=== PATIENT | male | born 1970 | race Caucasian/White ===

== ENCOUNTER 2016-07-13 04:04 | Inpatient (IN) | payer BC, OTHER ==
[~2016-07-13] VITALS: Ht 172.7 cm; Wt 102.5 kg
--- NOTE | 2016-07-13 04:21 | EMERGENCY ROOM VISIT NOTE ---
History Report prepared by Uzair: Justin Nichols Under the Supervision of: Dr. Brandan Woods M.D. First contact with patient: 04:06 Chief Complaint: ABDOMINAL PAIN Stated Complaint: ABD PAIN History of Present Illness The patient is a 46 year old male who presents to the Emergency Room from [place] with complaints of lower abdominal pain that started yesterday. The patient was diagnosed with moderate to severe sigmoid diverticulitis and micro perforation with possible 7 mm micro abscess. He received Levaquin, Flagyl, Zofran, and Dilaudid prior to arrival. His white count was 8.7 and his BNP and LFTs were in normal range. He has a past surgical history of hernia repair from when he was 14 years old. The patient complains of nausea, diarrhea, and constant pain that all started yesterday morning. He also notes difficulty urinating. Source of History: patient Onset: yesterday Position: abdomen Timing: other (persistent) Associated Symptoms: + diarrhea, + nausea Review of Systems See HPI for pertinent positives & negatives. A total of 10 systems reviewed and were otherwise negative. Past Medical & Surgical Medical Problems: (1) Acute diverticulitis (2) acute diverticulitis (3) Herniated cervical disc Surgical Problems: (1) Inguinal hernia Family History Diabetes mellitus FH: Parkinson's disease Heart disease Social History Smoking Status: Never Smoker Marital Status: Housing Status: lives with family Occupation Status: employed Current/Historical Medications Scheduled Cholecalciferol (Vitamin D 1000 Unit), 1,000 INTER.UNIT PO DAILY Allergies Coded Allergies: Sumatriptan (Verified Adverse Reaction, Unknown, hypotension, 07/13/16) Physical Exam Vital Signs Date Time Temp Pulse Resp B/P Pulse Ox O2 Delivery O2 Flow Rate FiO2 07/13/16 05:21 83 18 121/75 96 Room Air 07/13/16 04:32 88 18 123/72 90 Room Air 07/13/16 04:03 36.9 89 18 126/62 96 Room Air Physical Exam GENERAL: Patient is mild distress, uncomfortable appearing. HEENT: No acute trauma, normocephalic atraumatic, mucous membranes moist, no nasal congestion, no scleral icterus. NECK: No stridor, no adenopathy, no meningismus, trachea is midline. LUNGS: No dyspnea. Clear to auscultation and equal bilaterally. No wheeze, no rhonchi. HEART: Regular rate and rhythm. No murmurs, rubs, gallops appreciated. ABDOMEN: Soft, tenderness to palpation of suprapubic region, no guarding or rebound, bowel sounds positive, no masses appreciated, no peritonitis. BACK: No midline tenderness, no CVA tenderness EXTREMITIES: Normal motion all extremities, no cyanosis, no edema. NEUROLOGIC: Alert and oriented, no acute motor or sensory deficits, no focal weakness, cranial nerves grossly intact. SKIN: No rash, no jaundice, no diaphoresis. Medical Decision & Procedures Laboratory Results Test 07/13/16 05:09 Laboratory results as reviewed by me. Medications Administered Medications (Trade) Dose Ordered Sig/Karen Route Start Time Stop Time Status Last Admin Dose Admin Hydromorphone HCl (Dilaudid Inj) 1 mg NOW STAT IV 07/13/16 05:13 07/13/16 05:14 DC 07/13/16 05:17 1 MG ED Course 0402: The patient was evaluated in room A2. A complete history and physical exam was performed. 0513: Ordered Dilaudid Inj 1 mg IV. 0537: At this time, I discussed the patient's case with Dr. Ebenezer Hale and she agreed to accept the patient for further evaluation. Medical Decision 46 yr old male with already diagnosed sigmoid diverticulitis with microperforation at OSH transferred here to be evaluated by gen surgery. He has normal labs and looks well. Given some dilaudid for discomfort after a while in ED. Already had Levaquin/Flagyl for abx treatment. Breathing comfortably, no chest pain and looks well. Gen surg down to evaluate and request admission to hospitalist service. He is not septic appearing and is stable throughout ED stay. Consults Time Called: 0532 Consulting Physician: Dr. Ebenezer Hale Returned Call: 0537 At this time, I discussed the patient's case with Dr. Ebenezer Hale and she agreed to accept the patient for further evaluation. Impression Primary Impression: Diverticulitis of colon with perforation Scribe Attestation The scribe's documentation has been prepared under my direction and personally reviewed by me in its entirety. I confirm that the note above accurately reflects all work, treatment, procedures, and medical decision making performed by me. Departure Information Dispostion Being Evaluated By Hospitalist Referrals Patel Villarreal M.D. (PCP)
--- NOTE | 2016-07-13 05:12 | History and Physical ---
History & Physical Date & Time of Service: Jul 13, 2016 at 05:00 Chief Complaint: Abd Pain Primary Care Physician: Patel Villarreal M.D. History of Present Illness Source: patient, family The patient is a 46 year old male who presents to the Emergency Room from [place] with complaints of lower abdominal pain that started yesterday. The patient was diagnosed with moderate to severe sigmoid diverticulitis and micro perforation with possible 7 mm micro abscess. He received Levaquin, Flagyl, Zofran, and Dilaudid prior to arrival. His white count was 8.7 and his BNP and LFTs were in normal range. He has a past surgical history of hernia repair from when he was 14 years old. The patient complains of nausea, diarrhea, and constant pain that all started yesterday morning. He also notes difficulty urinating.pt denies fever, no chills, pt has never had colonoscopy in the past, Past Medical/Surgical History Medical Problems: (1) Herniated cervical disc Status: Chronic Surgical Problems: (1) Inguinal hernia Status: Resolved Family History Diabetes mellitus FH: Parkinson's disease Heart disease Social History Smoking Status: Never Smoker Smokeless Tobacco Use: No Alcohol Use: occasionally Drug Use: none Marital Status: Occupational Status: employed Allergies Coded Allergies: Sumatriptan (Verified Adverse Reaction, Unknown, hypotension, 12/25/15) Home Medications Scheduled Cholecalciferol (Vitamin D 1000 Unit), 1,000 INTER.UNIT PO DAILY Review of Systems Constitutional: No chills, No fatigue, No fever, No problem reported, No sweats , No weakness, No weight loss Eyes: No diplopia, No discharge, No eye pain, No problem reported, No redness, No worsening of vision ENT: No dental problems, No hearing loss, No nasal symptoms, No problem reported, No sore throat, No tinnitus, No trouble swallowing, No unusual epistaxis Respiratory: No cough, No dyspnea at rest, No dyspnea on exertion, No hemoptysis, No problem reported, No shortness of breath, No sputum, No wheezing Cardiovascular: No PND, No chest pain, No claudication, No edema, No orthopnea , No palpitations, No problem reported Abdomen: + diarrhea, + nausea, + pain Musculoskeletal: No calf pain, No joint pain, No muscle pain, No problem reported, No swelling Neurologic: + weakness (pt had history weakness on the legs in last year, ) Psychiatric: No anhedonism, No anxiety, No depression symptoms, No insomnia, No problem reported, No substance abuse Endocrine: No excessive thirst, No excessive urination, No fatigue, No problem reported Hematologic / Lymphatic: No abnormal bleeding/bruising, No clotting problems, No night sweats, No problem reported, No swollen lymph nodes Physical Exam Vital Signs Date Time Temp Pulse Resp B/P Pulse Ox O2 Delivery O2 Flow Rate FiO2 07/13/16 04:32 88 18 123/72 90 Room Air 07/13/16 04:03 36.9 89 18 126/62 96 Room Air General Appearance: WD/WN, no apparent distress Head: normocephalic Eyes: normal inspection ENT: normal ENT inspection Neck: supple, no JVD Respiratory/Chest: chest non-tender, lungs clear, normal breath sounds Cardiovascular: regular rate, rhythm, no edema, no gallop, no JVD Abdomen/GI: normal bowel sounds, soft, no organomegaly, + tenderness Back: normal inspection Extremities/Musculoskelatal: normal inspection, no calf tenderness, normal capillary refill Neurologic/Psych: medical care administrator II-XII nml as tested, no motor/sensory deficits, alert, normal mood/affect, normal reflexes Skin: normal color, warm/dry, no rash Diagnostics Laboratory Results WBC 8.[address] Scan- acute diverticulitis, 7 mm abscess, Impression Assessment and Plan IMP acute diverticulitis, 7 mm abscess Plan, I recommend that hospitalist will admit pt to hospital IV fluid, D5 1/2 ns with 20 MEQ KCL at 100ml/hour IV antibiotic Cipro + flagyl repeat labs in AM 07/14/2016 NPO control pain I D/W pt and his family about the treatment plan, and also I indicated pt may need surgery if his symptoms are getting worse, They understood, and agree with the plan, I will F/U Thanks,
[2016-07-13] MEDS ORDERED: HYDROmorphone INJ 1 MG/ML SYR IV STA (05:13)
[2016-07-13] MEDS ORDERED: MoRPHine SULFATE 4 MG/ML 1 ML CARP\\VIAL IV PRN (05:45)
[2016-07-13] MEDS ORDERED: MoRPHine SULFATE 2 MG/ML CARP IV PRN (05:45)
--- NOTE | 2016-07-13 05:45 | History and Physical ---
History & Physical Date & Time of Service: Jul 13, 2016 at 05:40 Chief Complaint: Abd Pain Primary Care Physician: Patel Villarreal M.D. History of Present Illness Source: patient The patient is a 46 year old male who presents to the Emergency Room from [place] with complaints of lower abdominal pain that started Yesterday at 1 PM pt had approx 6 times diarrhea , nausea , vomiting -thought he had GI bug /flu developed low grade fever and sudden onset of severe lower abdominal pain , sharp with radiation to bilat groin Pt was taken to [place] ER Lab work was unremarkable -wbc 8 K , normal BMP , LFT's UA was unremarkable CT abdomen /pelvis with contrast showed : moderate to severe sigmoid diverticulitis , with questionable contained microperforation or punctate 7 mm abscess pt was transferred to [facility] 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 no indication for emergent surgery recommend supportive care with bowel rest , pain control , IV hydration pt was given IV Levaquin , Flagyl in [place] ED Past Medical/Surgical History Medical Problems: (1) Herniated cervical disc Status: Chronic Surgical Problems: (1) Inguinal hernia Status: Resolved Family History Diabetes mellitus FH: Parkinson's disease Heart disease Social History Smoking Status: Never Smoker Smokeless Tobacco Use: No Alcohol Use: occasionally Drug Use: none Marital Status: Occupational Status: employed Allergies Coded Allergies: Sumatriptan (Verified Adverse Reaction, Unknown, hypotension, 07/13/16) Home Medications Scheduled Cholecalciferol (Vitamin D 1000 Unit), 1,000 INTER.UNIT PO DAILY Review of Systems Constitutional: + chills, + fever Respiratory: No cough, No dyspnea at rest, No dyspnea on exertion, No hemoptysis, No problem reported, No shortness of breath, No sputum, No wheezing Cardiovascular: No PND, No chest pain, No claudication, No edema, No orthopnea , No palpitations, No problem reported Abdomen: + diarrhea, + nausea, + pain, + vomiting Musculoskeletal: No calf pain, No joint pain, No muscle pain, No problem reported, No swelling Neurologic: No balance problems, No memory loss, No numbness/tingling, No paralysis, No problem reported, No vertigo, No weakness Physical Exam Vital Signs Date Time Temp Pulse Resp B/P Pulse Ox O2 Delivery O2 Flow Rate FiO2 07/13/16 05:21 83 18 121/75 96 Room Air 07/13/16 04:32 88 18 123/72 90 Room Air 07/13/16 04:03 36.9 89 18 126/62 96 Room Air General Appearance: + pertinent finding (in distress for adominal pain ) Head: normocephalic Eyes: normal inspection ENT: normal ENT inspection Neck: supple, no JVD Respiratory/Chest: chest non-tender, lungs clear, normal breath sounds Cardiovascular: regular rate, rhythm, no edema, no gallop, no JVD Abdomen/GI: no organomegaly, + tenderness (in lower quadrants , bowel sound diminished ) Extremities/Musculoskelatal: normal inspection, no calf tenderness, normal capillary refill 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, no motor/sensory deficits, alert, normal mood/affect, normal reflexes Skin: normal color, warm/dry, no rash Diagnostics Laboratory Results Results Past 24 Hours Test 07/13/16 05:09 Range/Units Diagnostic Radiology CT SCAN WITH CONTRAST DONE ON ED IN [facility] : moderate to severe sigmoid diverticulitis , with questionable contained microperforation or punctate 7 mm abscess Impression Assessment and Plan ACUTE SIGMOID DIVERTICULITIS : developed acute onset of lower abdominal pain seen in ED [facility] showed microperforation of sigmoid diverticulitis no evidence of sepsis vital remains stable ordered for bowel rest -NPO except sips of water pain contril IV fluid empiric Abx with Cipro /Flagyl Surgery input appreciated no indication for surgical intervention , conservative management as outline above will need out pt colonoscopic eval in 4-6 weeks after acute infection is adequately treated to assess diverticular disease HX OF MIGRAINE HEADACHE : developed worsening of headache -worse after getting IV Dilaudid in ER ordered of IV Tylenol PRN for Headache change pain medication to Toradol and IV morphine alternate for abdominal pain FULL CODE DVT PROPHYLAXIS low risk SCD and teds DISPOSITION : discharge home when medically stable Medicine follow up with Dr Villarreal Level of Care Med/Surg Resuscitation Status FULL RESUSCITATION VTE Prophylaxis VTE Risk Assessment Done? Y/N: Yes Risk Level: Low Given or contraindicated: T.E.D. Stockings, SCD's Additional Copies To Patel Villarreal M.D.
[2016-07-13 06:38] VITALS: BP 114/73; PULSE 94; TEMP 36.7; O2SAT 94; Ht 172.7 cm; Wt 102.5 kg
[2016-07-13] MEDS: CIPROFLOXACIN / D5W 400 MG in PREMIXED IN D5W 200 ML IV SCH ×2 (07:29→19:21)
[2016-07-13] MEDS: SODIUM CHLORIDE 0.9% 1000ML 1,000 ML IV SCH ×3 (07:29→22:25)
[2016-07-13] MEDS: KETOROLAC TROMETHAMINE 30 MG/ML VIAL IV PRN ×3 (08:02→20:05)
[2016-07-13] MEDS: ONDANSETRON INJ 2 MG/ML 2 ML VIAL IV PRN (08:07)
[2016-07-13] MEDS ORDERED: ACETAMINOPHEN IV 100 ML IV ONE (08:15)
[2016-07-13] MEDS: METRONIDAZOLE / NSS 500 MG in PREMIXED NSS 100 ML IV SCH ×3 (09:16→23:30)
--- NOTE | 2016-07-13 09:47 | DIAGNOSTIC IMAGING REPORT ---
PA CHEST RADIOGRAPH AND UPRIGHT AND SUPINE AP RADIOGRAPHS OF THE ABDOMEN CLINICAL HISTORY: Diverticulitis with microperforation. COMPARISON STUDY: CT of the abdomen and pelvis July 13, 2016 FINDINGS: There is mild elevation of the right hemidiaphragm. No pneumothorax or pleural effusion is present. There is no evidence of pulmonary edema. Cardiac size is at the upper limits of normal. There is no free air. There is contrast within the collecting systems, ureters and bladder from recent contrast-enhanced CT. Bowel gas pattern is normal. IMPRESSION: No free air or evidence of bowel obstruction. Electronically signed by: Noble Arreaga M.D. 07/13/2016 9:46 AM Dictated Date/Time: 07/13/2016 9:45 AM
[2016-07-13 09:53] LABS: HEMATOCRIT 36.7 % (42-52); MEAN CELL VOLUME 88.6 fL (80-100); MEAN CORPUSCULAR HEMOGLOBIN 31.2 pg (25-34); MEAN CORPUSCULAR HGB CONC 35.1 g/dl (32-36); MEAN PLATELET VOLUME 9.6 fL (7.4-10.4); PLATELET COUNT 217 K/uL (130-400); RED BLOOD COUNT 4.14 M/uL (4.7-6.1); WHITE BLOOD COUNT 8.56 K/uL (4.8-10.8)
[2016-07-13 10:22] LABS: BUN/CREATININE RATIO 12.7 (10-20); CALCIUM 8.2 mg/dl (8.5-10.1); CREATININE 1.1 mg/dl (0.60-1.40); POTASSIUM 3.7 mmol/L (3.5-5.1)
[2016-07-13 10:25] LABS: ALB/GLOB RATIO 1.2 (0.9-2)
[2016-07-13 10:53] LABS: MANUAL MICROSCOPIC REQUIRED? NO; URINE APPEARANCE CLEAR (CLEAR); URINE BILIRUBIN NEG (NEG); URINE COLOR YELLOW; URINE NITRITE NEG (NEG); UROBILINOGEN NEG (NEG)
[2016-07-13 10:56] LABS: REVIEW REQ? NO
[2016-07-13 11:07] LABS: ZZUR CULT IF INDIC CLEAN CATCH NO
--- NOTE | 2016-07-13 14:56 | Surgery Progress Note ---
Surgery Progress Note Date of Service Jul 13, 2016. Subjective + feeling well pt is doing better, less abdominal pain, no N/V, no diarrhea, no fever. Objective Vital Signs: Date Time Temp Pulse Resp B/P Pulse Ox O2 Delivery O2 Flow Rate FiO2 07/13/16 10:43 Room Air 07/13/16 06:38 36.7 94 16 114/73 94 Room Air 07/13/16 06:05 88 18 126/70 94 Room Air 07/13/16 05:36 87 18 109/68 93 Room Air 07/13/16 05:21 83 18 121/75 96 Room Air 07/13/16 04:32 88 18 123/72 90 Room Air 07/13/16 04:03 36.9 89 18 126/62 96 Room Air General Appearance: WD/WN Head: normocephalic Neck: supple Respiratory/Chest: chest non-tender, lungs clear Cardiovascular: regular rate, rhythm, no edema, no JVD Abdomen: normal bowel sounds, non tender, non distended, soft Extremities: normal range of motion, non-tender, normal inspection Laboratory Results: Results Past 24 Hours Test 07/13/16 09:14 07/13/16 10:11 Range/Units White Blood Count 8.56 4.8-10.8 K/uL Red Blood Count 4.14 4.7-6.1 M/uL Hemoglobin 12.9 14.0-18.0 g/dL Hematocrit 36.7 42-52 % Mean Corpuscular Volume 88.6 80-100 fL Mean Corpuscular Hemoglobin 31.2 25-34 pg Mean Corpuscular Hemoglobin Concent 35.1 32-36 g/dl RDW Standard Deviation 40.0 36.4-46.3 fL RDW Coefficient of Variation 12.4 11.5-14.5 % Platelet Count 217 130-400 K/uL Mean Platelet Volume 9.6 7.4-10.4 fL Sodium Level 139 136-145 mmol/L Potassium Level 3.7 3.5-5.1 mmol/L Chloride Level 106 98-107 mmol/L Carbon Dioxide Level 24 21-32 mmol/L Anion Gap 9.0 3-11 mmol/L Blood Urea Nitrogen 14 7-18 mg/dl Creatinine 1.10 0.60-1.40 mg/dl Est Creatinine Clear Calc Drug Dose 97.4 ml/min Estimated GFR () 92.8 Estimated GFR (Non- 80.1 BUN/Creatinine Ratio 12.7 10-20 Random Glucose 116 70-99 mg/dl Calcium Level 8.2 8.5-10.1 mg/dl Total Bilirubin 1.8 0.2-1 mg/dl Aspartate Amino Transf (AST/SGOT) 13 15-37 U/L Alanine Aminotransferase (ALT/SGPT) 24 12-78 U/L Alkaline Phosphatase 58 45-117 U/L Total Protein 6.4 6.4-8.2 gm/dl Albumin 3.5 3.4-5.0 gm/dl Globulin 2.9 2.5-4.0 gm/dl Albumin/Globulin Ratio 1.2 0.9-2 Urine Color YELLOW Urine Appearance CLEAR CLEAR Urine pH 7.0 4.5-7.5 Urine Specific [place] 1.020 1.000-1.030 Urine Protein NEG NEG Urine Glucose (UA) NEG NEG Urine Ketones NEG NEG Urine Occult Blood NEG NEG Urine Nitrite NEG NEG Urine Bilirubin NEG NEG Urine Urobilinogen NEG NEG Urine Leukocyte Esterase NEG NEG Assessment & Plan IMP diverticulitis continue treatment repeat labs AM will F/U possible clear diet tomorrow,
[2016-07-13 15:12] VITALS: BP 96/57; PULSE 64; TEMP 36.5; O2SAT 92
--- NOTE | 2016-07-13 15:51 | Progress Note ---
Medicine Progress Note Date & Time of Visit: Jul 13, 2016 at 15:46. Subjective Patient seen and examined. Feeling better. Abdominal pain has significantly improved since arrival. Objective Last 8 Hrs Date Time Temp Pulse Resp B/P Pulse Ox O2 Delivery O2 Flow Rate FiO2 07/13/16 15:12 36.5 64 16 96/57 92 Room Air 07/13/16 10:43 Room Air Physical Exam: General-awake; alert; NAD Eyes-EOMI; no scleral icterus Neck-no stridor; trachea midline Lungs-CTA bilaterally; no wheezes/crackles Heart-RRR; no m/r/g Abdomen-soft; mild supra-pubic tenderness to palpation; nBS; ND Extremities-no c/c/e; no deformity Neuro-no gross focal deficits Laboratory Results: Last 24 Hours Test 07/13/16 09:14 07/13/16 10:11 White Blood Count 8.56 K/uL Red Blood Count 4.14 M/uL Hemoglobin 12.9 g/dL Hematocrit 36.7 % Mean Corpuscular Volume 88.6 fL Mean Corpuscular Hemoglobin 31.2 pg Mean Corpuscular Hemoglobin Concent 35.1 g/dl RDW Standard Deviation 40.0 fL RDW Coefficient of Variation 12.4 % Platelet Count 217 K/uL Mean Platelet Volume 9.6 fL Sodium Level 139 mmol/L Potassium Level 3.7 mmol/L Chloride Level 106 mmol/L Carbon Dioxide Level 24 mmol/L Anion Gap 9.0 mmol/L Blood Urea Nitrogen 14 mg/dl Creatinine 1.10 mg/dl Est Creatinine Clear Calc Drug Dose 97.4 ml/min Estimated GFR () 92.8 Estimated GFR (Non- 80.1 BUN/Creatinine Ratio 12.7 Random Glucose 116 mg/dl Calcium Level 8.2 mg/dl Total Bilirubin 1.8 mg/dl Aspartate Amino Transf (AST/SGOT) 13 U/L Alanine Aminotransferase (ALT/SGPT) 24 U/L Alkaline Phosphatase 58 U/L Total Protein 6.4 gm/dl Albumin 3.5 gm/dl Globulin 2.9 gm/dl Albumin/Globulin Ratio 1.2 Urine Color YELLOW Urine Appearance CLEAR Urine pH 7.0 Urine Specific [place] 1.020 Urine Protein NEG Urine Glucose (UA) NEG Urine Ketones NEG Urine Occult Blood NEG Urine Nitrite NEG Urine Bilirubin NEG Urine Urobilinogen NEG Urine Leukocyte Esterase NEG Assessment & Plan Patient is a 46 y/o male with acute diverticulitis, complicated by microperforation. Acute diverticulitis - clinically improved - continue IVF's - NPO - Toradol and Morphine PRN - Zofran PRN - continue ciprofloxacin and Flagyl IV - General surgery consulted - possibly start clear liquid diet tomorrow DVT prophylaxis with SCD's. Consultants: General surgery Current Inpatient Medications: Current Inpatient Medications Medications (Trade) Dose Ordered Sig/Karen Route Start Time Stop Time Status Last Admin Dose Admin Ciprofloxacin/ Dextrose 400 mg/ Prmx 200 ml @ 100 mls/hr Q12H IV 07/13/16 07:00 07/23/16 06:59 07/13/16 07:29 100 MLS/HR Metronidazole 500 mg/Prmx 100 ml @ 100 mls/hr Q8H IV 07/13/16 08:00 07/23/16 07:59 07/13/16 09:16 100 MLS/HR Sodium Chloride (Nss 1000ml) 1,000 ml @ 125 mls/hr Q8H IV 07/13/16 06:45 08/12/16 06:44 07/13/16 14:22 125 MLS/HR Morphine Sulfate (MoRPHine SULFATE INJ) 2 mg Q4 PRN IV 07/13/16 05:45 07/27/16 05:44 Morphine Sulfate (MoRPHine SULFATE INJ) 4 mg Q4 PRN IV 07/13/16 05:45 07/27/16 05:44 Ondansetron HCl (Zofran Inj) 4 mg Q6H PRN IV 07/13/16 05:45 08/12/16 05:44 07/13/16 08:07 4 MG Ketorolac Tromethamine 30 mg 30 mg Q6H PRN IV 07/13/16 07:45 07/18/16 07:44 07/13/16 13:19 30 MG Acetaminophen/ Empty Bag (Ofirmev IV/ Empty Iv Bag 100ml) 65 ml @ 260 mls/hr Q6H PRN IV 07/13/16 08:00 08/12/16 07:59
[2016-07-13] MEDS: ACETAMINOPHEN IV 650 MG in EMPTY BAG 0 ML IV PRN (19:33)
[2016-07-13 22:53] VITALS: BP 99/61; PULSE 68; TEMP 36.8; O2SAT 95
[2016-07-14] MEDS: ACETAMINOPHEN IV 650 MG in EMPTY BAG 0 ML IV PRN (03:13)
[2016-07-14] MEDS: CIPROFLOXACIN / D5W 400 MG in PREMIXED IN D5W 200 ML IV SCH ×2 (06:07→19:41)
[2016-07-14] MEDS: SODIUM CHLORIDE 0.9% 1000ML 1,000 ML IV SCH ×3 (06:07→22:15)
[2016-07-14 06:33] LABS: HEMATOCRIT 36.5 % (42-52); MEAN CELL VOLUME 88.6 fL (80-100); MEAN CORPUSCULAR HEMOGLOBIN 30.8 pg (25-34); MEAN CORPUSCULAR HGB CONC 34.8 g/dl (32-36); MEAN PLATELET VOLUME 9.4 fL (7.4-10.4); PLATELET COUNT 204 K/uL (130-400); RED BLOOD COUNT 4.12 M/uL (4.7-6.1); WHITE BLOOD COUNT 7.03 K/uL (4.8-10.8)
[2016-07-14 07:04] LABS: BUN/CREATININE RATIO 13.1 (10-20); CALCIUM 8.5 mg/dl (8.5-10.1); CREATININE 0.99 mg/dl (0.60-1.40); POTASSIUM 3.6 mmol/L (3.5-5.1)
[2016-07-14 07:52] VITALS: BP 145/71; PULSE 77; TEMP 36.6; O2SAT 95
[2016-07-14] MEDS: METRONIDAZOLE / NSS 500 MG in PREMIXED NSS 100 ML IV SCH ×2 (08:19→15:19)
[2016-07-14] MEDS: KETOROLAC TROMETHAMINE 30 MG/ML VIAL IV PRN ×2 (08:19→18:45)
[2016-07-14 09:50] VITALS: O2SAT 95
--- NOTE | 2016-07-14 09:58 | Surgery Progress Note ---
Surgery Progress Note Date of Service Jul 14, 2016. Subjective + feeling well pt is doing better, no N/V, no fever, less abdominal pain, Objective Vital Signs: Date Time Temp Pulse Resp B/P Pulse Ox O2 Delivery O2 Flow Rate FiO2 07/14/16 09:50 95 Room Air 07/14/16 07:52 36.6 77 16 145/71 95 Room Air 07/14/16 07:15 Room Air 07/13/16 23:34 Room Air 07/13/16 22:53 36.8 68 16 99/61 95 Room Air 07/13/16 15:30 Room Air 07/13/16 15:12 36.5 64 16 96/57 92 Room Air 07/13/16 10:43 Room Air General Appearance: WD/WN Head: normocephalic Neck: supple Respiratory/Chest: chest non-tender, lungs clear Cardiovascular: regular rate, rhythm, no edema, no gallop Abdomen: normal bowel sounds, non tender, non distended, soft Extremities: normal range of motion, non-tender Laboratory Results: Results Past 24 Hours Test 07/13/16 10:11 07/14/16 06:13 Range/Units Urine Color YELLOW Urine Appearance CLEAR CLEAR Urine pH 7.0 4.5-7.5 Urine Specific [place] 1.020 1.000-1.030 Urine Protein NEG NEG Urine Glucose (UA) NEG NEG Urine Ketones NEG NEG Urine Occult Blood NEG NEG Urine Nitrite NEG NEG Urine Bilirubin NEG NEG Urine Urobilinogen NEG NEG Urine Leukocyte Esterase NEG NEG White Blood Count 7.03 4.8-10.8 K/uL Red Blood Count 4.12 4.7-6.1 M/uL Hemoglobin 12.7 14.0-18.0 g/dL Hematocrit 36.5 42-52 % Mean Corpuscular Volume 88.6 80-100 fL Mean Corpuscular Hemoglobin 30.8 25-34 pg Mean Corpuscular Hemoglobin Concent 34.8 32-36 g/dl RDW Standard Deviation 39.6 36.4-46.3 fL RDW Coefficient of Variation 12.4 11.5-14.5 % Platelet Count 204 130-400 K/uL Mean Platelet Volume 9.4 7.4-10.4 fL Sodium Level 142 136-145 mmol/L Potassium Level 3.6 3.5-5.1 mmol/L Chloride Level 107 98-107 mmol/L Carbon Dioxide Level 22 21-32 mmol/L Anion Gap 13.0 3-11 mmol/L Blood Urea Nitrogen 13 7-18 mg/dl Creatinine 0.99 0.60-1.40 mg/dl Est Creatinine Clear Calc Drug Dose 108.2 ml/min Estimated GFR () 105.4 Estimated GFR (Non- 91.0 BUN/Creatinine Ratio 13.1 10-20 Random Glucose 80 70-99 mg/dl Calcium Level 8.5 8.5-10.1 mg/dl Assessment & Plan IMP diverticulitis continue treatment clear diet may D/C home tomorrow, po antibiotic for 1 week I gave pt about the instruction, F/U GI doctor for colonoscopy in 6-8 weeks, pt should come back to ER if he develops severe abdominal pain, N/V, fever, diarrhea. F/U me in 1 week [phone] sign off today, please call me if any new issues Thansks. clear liquids IMP diverticulitis continue treatment repeat labs AM will F/U possible clear diet tomorrow,
[2016-07-14 12:39] VITALS: BP 136/86; PULSE 67; TEMP 36.8; O2SAT 97
[2016-07-14 15:20] VITALS: BP 150/97; PULSE 70; TEMP 36.6; O2SAT 100
--- NOTE | 2016-07-14 16:15 | Progress Note ---
Medicine Progress Note Date & Time of Visit: Jul 14, 2016 at 16:13. Subjective Patient seen and examined. Started on clear liquid diet today. Tolerating. Headache resolved with coffee. Denies abdominal pain. Passing gas. Objective Last 8 Hrs Date Time Temp Pulse Resp B/P Pulse Ox O2 Delivery O2 Flow Rate FiO2 07/14/16 15:20 36.6 70 20 150/97 100 Room Air 07/14/16 15:15 Room Air 07/14/16 12:39 36.8 67 16 136/86 97 Room Air 07/14/16 09:50 95 Room Air Physical Exam: General-awake; alert; NAD Eyes-EOMI; no scleral icterus Neck-no stridor; trachea midline Lungs-CTA bilaterally; no wheezes/crackles Heart-RRR; no m/r/g Abdomen-sof; nBS; NTND Extremities-no c/c/e; no deformity Neuro-no gross focal deficits Laboratory Results: Last 24 Hours Test 07/14/16 06:13 White Blood Count 7.03 K/uL Red Blood Count 4.12 M/uL Hemoglobin 12.7 g/dL Hematocrit 36.5 % Mean Corpuscular Volume 88.6 fL Mean Corpuscular Hemoglobin 30.8 pg Mean Corpuscular Hemoglobin Concent 34.8 g/dl RDW Standard Deviation 39.6 fL RDW Coefficient of Variation 12.4 % Platelet Count 204 K/uL Mean Platelet Volume 9.4 fL Sodium Level 142 mmol/L Potassium Level 3.6 mmol/L Chloride Level 107 mmol/L Carbon Dioxide Level 22 mmol/L Anion Gap 13.0 mmol/L Blood Urea Nitrogen 13 mg/dl Creatinine 0.99 mg/dl Est Creatinine Clear Calc Drug Dose 108.2 ml/min Estimated GFR () 105.4 Estimated GFR (Non- 91.0 BUN/Creatinine Ratio 13.1 Random Glucose 80 mg/dl Calcium Level 8.5 mg/dl Assessment & Plan Patient is a 46 y/o male with acute diverticulitis, complicated by microperforation. Acute diverticulitis - clinically improved - continue IVF's - clear liquid diet; advance tomorrow - Toradol and Morphine PRN - Zofran PRN - continue ciprofloxacin and Flagyl IV - General surgery consulted DVT prophylaxis with SCD's. Anticipate discharge tomorrow. Consultants: General surgery Current Inpatient Medications: Current Inpatient Medications Medications (Trade) Dose Ordered Sig/Karen Route Start Time Stop Time Status Last Admin Dose Admin Ciprofloxacin/ Dextrose 400 mg/ Prmx 200 ml @ 100 mls/hr Q12H IV 07/13/16 07:00 07/23/16 06:59 07/14/16 06:07 100 MLS/HR Metronidazole 500 mg/Prmx 100 ml @ 100 mls/hr Q8H IV 07/13/16 08:00 07/23/16 07:59 07/14/16 15:19 100 MLS/HR Sodium Chloride (Nss 1000ml) 1,000 ml @ 125 mls/hr Q8H IV 07/13/16 06:45 08/12/16 06:44 07/14/16 14:37 125 MLS/HR Morphine Sulfate (MoRPHine SULFATE INJ) 2 mg Q4 PRN IV 07/13/16 05:45 07/27/16 05:44 Morphine Sulfate (MoRPHine SULFATE INJ) 4 mg Q4 PRN IV 07/13/16 05:45 07/27/16 05:44 Ondansetron HCl (Zofran Inj) 4 mg Q6H PRN IV 07/13/16 05:45 08/12/16 05:44 07/13/16 08:07 4 MG Ketorolac Tromethamine 30 mg 30 mg Q6H PRN IV 07/13/16 07:45 07/18/16 07:44 07/14/16 08:19 30 MG Acetaminophen/ Empty Bag (Ofirmev IV/ Empty Iv Bag 100ml) 65 ml @ 260 mls/hr Q6H PRN IV 07/13/16 08:00 08/12/16 07:59 07/14/16 03:13 260 MLS/HR
[2016-07-14] MEDS: ONDANSETRON INJ 2 MG/ML 2 ML VIAL IV PRN (22:15)
[2016-07-14 22:55] VITALS: BP 129/83; PULSE 58; TEMP 36.4; O2SAT 96
[2016-07-15] MEDS: METRONIDAZOLE / NSS 500 MG in PREMIXED NSS 100 ML IV SCH ×2 (00:08→08:27)
[2016-07-15] MEDS: KETOROLAC TROMETHAMINE 30 MG/ML VIAL IV PRN (04:24)
[2016-07-15] MEDS: SODIUM CHLORIDE 0.9% 1000ML 1,000 ML IV SCH (06:25)
[2016-07-15] MEDS: CIPROFLOXACIN / D5W 400 MG in PREMIXED IN D5W 200 ML IV SCH (06:26)
[2016-07-15 07:29] VITALS: BP 122/79; PULSE 57; TEMP 36.5; O2SAT 98
[2016-07-15] MEDS ORDERED: METR500T PO (09:25)
[2016-07-15] MEDS ORDERED: CPR500 PO (09:25)
--- NOTE | 2016-07-15 09:29 | Discharge Instructions ---
Discharge Instructions Admission Reason for Admission: Acute Diverticulitis Discharge Discharge Diagnosis / Problem: Acute diverticulitis Discharge Goals Goal(s): Decrease discomfort Activity Recommendations Activity Limitations: resume your previous activity . Instructions / Follow-Up Instructions / Follow-Up Please follow up with Family Medicine Dr. Villarreal on July 21 at 12:30pm. You can discuss with Dr. Villarreal about a referral to GI. Please take your antibiotics as prescribed until complete. You can alternate Motrin (up to 800mg three times a day as needed) and Tylenol ( up to 1000mg four times a day as needed) for pain. Please take Motrin with food. Please eat yogurt or take a probiotic daily to promote intestinal health. Current Hospital Diet Patient's current hospital diet: Low Fiber Diet Discharge Diet Recommended Diet: Low Fiber Diet Pending Studies Studies pending at discharge: no Work Instructions Additional Instructions: Please excuse Mr. Jack from work duties from 07/13/16 until 07/19/16 due to hospitalization. School Instructions Additional Instructions: Please excuse Mr. Jack from work duties from 07/13/16 until 07/19/16 due to hospitalization. Medical Emergencies . Who to Call and When: Medical Emergencies: If at any time you feel your situation is an emergency, please call 911 immediately. . Non-Emergent Contact Non-Emergency issues call your: Primary Care Provider . . "Provider Documentation" section prepared by Malorie Pinzon. VTE Core Measure Inpt VTE Proph given/why not?: Marky Wells, [employer]
--- NOTE | 2016-07-15 09:44 | Discharge Summary ---
Discharge Summary Admission Date: Jul 13, 2016 at 05:34 Discharge Date: Jul 15, 2016 Discharge Disposition: Home Principal Diagnosis: Acute diverticulitis with microperforation Consultations: General surgery Medication Reconciliation New Medications: Ciprofloxacin (Ciprofloxacin HCl) 500 Mg Tab 1 TAB PO BID for 8 Days, #15 TABS Metronidazole (Flagyl) 500 Mg Tab 500 MG PO TID for 8 Days, #23 TAB Continued Medications: Cholecalciferol (Vitamin D 1000 Unit) 1,000 Unit Cap 1000 INTER.UNIT PO DAILY, CAP Admission Information HPI (per Admitting provider): The patient is a 46 year old male who presents to the Emergency Room from [place] with complaints of lower abdominal pain that started Yesterday at 1 PM pt had approx 6 times diarrhea , nausea , vomiting -thought he had GI bug /flu developed low grade fever and sudden onset of severe lower abdominal pain , sharp with radiation to bilat groin Pt was taken to [place] ER Lab work was unremarkable -wbc 8 K , normal BMP , LFT's UA was unremarkable CT abdomen /pelvis with contrast showed : moderate to severe sigmoid diverticulitis , with questionable contained microperforation or punctate 7 mm abscess pt was transferred to [facility] evaluated by contact center rep surgeon in ED no indication for emergent surgery recommend supportive care with bowel rest , pain control , IV hydration pt was given IV Levaquin , Flagyl in [place] ED Physical Exam (per Admitting): General Appearance: + pertinent finding (in distress for adominal pain ) Head: normocephalic Eyes: normal inspection ENT: normal ENT inspection Neck: supple, no JVD Respiratory/Chest: chest non-tender, lungs clear, normal breath sounds Cardiovascular: regular rate, rhythm, no edema, no gallop, no JVD Abdomen/GI: no organomegaly, + tenderness (in lower quadrants , bowel sound diminished ) Extremities/Musculoskelatal: normal inspection, no calf tenderness, normal capillary refill 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 General surgery was consulted. Patient was managed conservatively with bowel rest, IVF's, pain medications as needed and ciprofloxacin/metronidazole. Patient clinically improved and was deemed stable for discharge with Family Medicine follow up. Patient was discharged on ciprofloxacin/metronidazole to complete a course of antibiotics. PE on discharge: General- awake; alert; NAD Eyes- EOMI; no scleral icterus Neck- no stridor; trachea midline Lungs- CTA bilaterally; no wheezes/crackles Heart- RRR; no m/r/g Abdomen- soft; mildly tender to palpation in suprapubic region; ND; nBS Back- no gross abnormalities Extremities- no c/c/e; no deformity Neuro- no gross focal deficits Skin- no appreciable rash or bruise . Total time spent on discharge = This includes examination of the patient, discharge planning, medication reconciliation, and communication with other providers. Discharge Instructions Discharge Instructions Admission Reason for Admission: Acute Diverticulitis Discharge Discharge Diagnosis / Problem: Acute diverticulitis Discharge Goals Goal(s): Decrease discomfort Activity Recommendations Activity Limitations: resume your previous activity . Instructions / Follow-Up Instructions / Follow-Up Please follow up with Family Medicine Dr. Villarreal on July 21 at 12:30pm. You can discuss with Dr. Villarreal about a referral to GI. Please take your antibiotics as prescribed until complete. You can alternate Motrin (up to 800mg three times a day as needed) and Tylenol ( up to 1000mg four times a day as needed) for pain. Please take Motrin with food. Please eat yogurt or take a probiotic daily to promote intestinal health. Current Hospital Diet Patient's current hospital diet: Low Fiber Diet Discharge Diet Recommended Diet: Low Fiber Diet Pending Studies Studies pending at discharge: no Work Instructions Additional Instructions: Please excuse Mr. Jack from work duties from 07/13/16 until 07/19/16 due to hospitalization. School Instructions Additional Instructions: Please excuse Mr. Jack from work duties from 07/13/16 until 07/19/16 due to hospitalization. Medical Emergencies . Who to Call and When: Medical Emergencies: If at any time you feel your situation is an emergency, please call 911 immediately. . Non-Emergent Contact Non-Emergency issues call your: Primary Care Provider . . "Provider Documentation" section prepared by Malorie Pinzon. VTE Core Measure Inpt VTE Proph given/why not?: Marky Wells, [employer] Additional Copies To Patel Villarreal M.D.
[2016-07-15 10:32] VITALS: BP 122/79; PULSE 57; TEMP 36.5; O2SAT 98
[2016-07-21] MEDS ORDERED: CHOL100027 PO (09:41)
== END 2016-07-15 11:30 | disposition home or self-care (01) | DRG 392 ==
LOC: ENRESERVTM → ENRESERVDT → EDBD 04:04 → C.EDA 04:05 → C.MSN 05:34
PROVIDERS: ADMIT Hospitalist; ATTEND Internal Medicine
DX: K57.20 Diverticulitis of large intestine with perforation and abscess without bleeding (principal); R51 Headache; R11.2 Nausea with vomiting, unspecified; Z79.899 Other long term (current) drug therapy

== ENCOUNTER 2016-07-21 13:26 | Emergency (ER) | payer OTHER ==
[~2016-07-21] VITALS: Ht 172.7 cm; Wt 97.1 kg
[~2016-07-21 13:26] MED LIST: CHOL100027 PO; CPR500 PO; METR500T PO
[2016-07-21 13:34] VITALS: TEMP 36.6; Ht 172.7 cm; Wt 97.1 kg
[2016-07-21] MEDS ORDERED: SODIUM CHLORIDE 0.9% 1000ML 1,000 ML IV STA (14:31)
[2016-07-21] MEDS ORDERED: ONDANSETRON INJ 2 MG/ML 2 ML VIAL IV STA (14:31)
--- NOTE | 2016-07-21 14:42 | EMERGENCY ROOM VISIT NOTE ---
History Report prepared by Uzair: Meek العراقي Under the Supervision of: Josy GilletteO. First contact with patient: 14:20 Chief Complaint: ABDOMINAL PAIN Stated Complaint: ABD. PAIN Nursing Triage Summary: Lower abd pain states was recently admitted for diverticulitis. Paitent denies any n/v/d History of Present Illness The patient is a 46 year old male who presents to the Emergency Room with complaints of left lower quadrant abdominal pain starting about a week ago and worsening today. The patient was hospitalized on July 13 for moderate to severe sigmoid diverticulitis with questionable micro perforation of 7 mm. He was discharged home with Cipro and Flagyl on July 15. He is supposed to take the antibiotics for the next 2 days. He had some improvement in his pain after he was discharged. His pain worsened today. He describes his current abdominal pain to be similar to the one he had about a week ago but reports that the severity of the pain is much less this time. He also complains of nausea but denies vomiting. He notes the constipation has improved. He had a bowel movement this morning with small stools. The patient notes a reduced appetite. He currently rates a pain intensity of 3-4/10. Pt denies headache, change in vision, fevers, chest pain, shortness of breath, diarrhea, pain with urination, and melena. Source of History: patient Onset: about a week ago Position: abdomen (LLQ) Symptom Intensity: 3-4/10 Timing: worsening Associated Symptoms: + nausea, No SOB, No chest pain, No diarrhea, No fevers , No headache, No vomiting Review of Systems See HPI for pertinent positives & negatives. A total of 10 systems reviewed and were otherwise negative. Past Medical & Surgical Medical Problems: (1) Acute diverticulitis (2) acute diverticulitis (3) Herniated cervical disc Surgical Problems: (1) Inguinal hernia Family History Diabetes mellitus FH: Parkinson's disease Heart disease Social History Smoking Status: Never Smoker Drug Use: none Marital Status: Housing Status: lives with family Occupation Status: employed Current/Historical Medications Scheduled Cholecalciferol (Vitamin D 1000 Unit), 1,000 INTER.UNIT PO DAILY Ciprofloxacin (Ciprofloxacin HCl), 1 TAB PO BID Ciprofloxacin Hcl (Cipro), 500 MG PO BID Metronidazole (Flagyl), 500 MG PO TID Metronidazole (Flagyl), 500 MG PO TID Allergies Coded Allergies: Sumatriptan (Verified Adverse Reaction, Unknown, hypotension, 07/13/16) Physical Exam Vital Signs Date Time Temp Pulse Resp B/P Pulse Ox O2 Delivery O2 Flow Rate FiO2 07/21/16 17:31 63 16 104/56 97 Room Air 07/21/16 16:56 54 18 100/53 96 Room Air 07/21/16 14:52 66 16 118/67 97 Room Air 07/21/16 13:34 36.6 84 20 115/76 97 Room Air Physical Exam GENERAL: Sitting up in bed, alert, well appearing, well nourished, no distress, non-toxic EYE EXAM: normal conjunctiva OROPHARYNX: no exudate, no erythema, lips, buccal mucosa, and tongue normal and mucous membranes are moist NECK: supple, no nuchal rigidity, no adenopathy, non-tender LUNGS: Clear to auscultation. Normal chest wall mechanics HEART: no murmurs, S1 normal and S2 normal ABDOMEN: abdomen soft, tenderness to palpation of the left lower quadrant, normo -active bowel sounds, no masses, no rebound or guarding. BACK: Back is symmetrical on inspection and there is no deformity, no midline tenderness, no CVA tenderness. SKIN: no rashes and no bruising UPPER EXTREMITIES: upper extremities are grossly normal. LOWER EXTREMITIES: No pitting edema. NEURO EXAM: Normal sensorium, cranial nerves II-XII grossly intact, normal speech, no gross weakness of arms, no gross weakness of legs. Medical Decision & Procedures ER Provider Diagnostic Interpretation: CT:Per my review, radiologist interpretation. ABDOMEN AND PELVIS CT WITH IV CONTRAST CT DOSE: 990.09 mGycm HISTORY: Pain LLQ abd pain w/ diver tic and previous abscess on 07/13 TECHNIQUE: Multiaxial CT images of the abdomen and pelvis were performed following the use of intravenous contrast. COMPARISON STUDY: 07/13/2016 FINDINGS: Lung bases are clear. Several small hepatic cysts unchanged in the prior study. Spleen is uniform. Pancreas shows moderate fatty replacement. Kidneys enhance uniformly. Acute proximal to mid sigmoid diverticulitis. Compared to the prior study was improved. No significant abscess or collection at the current time is present. Moderate residual pericolonic infiltrative changes present. No free fluid within the pelvic cul-de-sac. Bladder is midline. IMPRESSION: 1. Improving proximal to mid sigmoid acute diverticulitis. 2. Moderate pericolonic infiltrative change with wall thickening of the sigmoid improved from the prior study. 3. No current evidence for abscess collection or phlegmon formation. 4. Instill note is made of a small fat-containing right inguinal hernia. This is non bowel containing and nonobstructing. It Is considered an incidental finding. Electronically signed by: Arnie Pantoja M.D. 07/21/2016 4:53 PM Dictated Date/Time: 07/21/2016 4:47 PM Laboratory Results 07/21/16 14:52 Red Blood Count 4.77, Mean Corpuscular Volume 89.9, Mean Corpuscular Hemoglobin 31.7, Mean Corpuscular Hemoglobin Concent 35.2, Mean Platelet Volume 9.5, Neutrophils (%) (Auto) 40.4, Lymphocytes (%) (Auto) 47.8, Monocytes (%) (Auto) 9.7, Eosinophils (%) (Auto) 1.8, Basophils (%) (Auto) 0.3, Neutrophils # (Auto) 1.59, Lymphocytes # (Auto) 1.88, Monocytes # (Auto) 0.38, Eosinophils # (Auto) 0.07, Basophils # (Auto) 0.01 07/21/16 14:52 Test 07/21/16 14:45 07/21/16 14:52 Urine Color YELLOW Urine Appearance CLEAR (CLEAR) Urine pH 6.5 (4.5-7.5) Urine Specific [place] 1.013 (1.000-1.030) Urine Protein NEG (NEG) Urine Glucose (UA) NEG (NEG) Urine Ketones NEG (NEG) Urine Occult Blood NEG (NEG) Urine Nitrite NEG (NEG) Urine Bilirubin NEG (NEG) Urine Urobilinogen NEG (NEG) Urine Leukocyte Esterase TRACE (NEG) Urine WBC (Auto) 0 /hpf (0-5) Urine RBC (Auto) 0-4 /hpf (0-4) Urine Hyaline Casts (Auto) 0 /lpf (0-5) Urine Epithelial Cells (Auto) 0-5 /lpf (0-5) Urine Bacteria (Auto) NEG (NEG) White Blood Count 3.93 K/uL (4.8-10.8) Red Blood Count 4.77 M/uL (4.7-6.1) Hemoglobin 15.1 g/dL (14.0-18.0) Hematocrit 42.9 % (42-52) Mean Corpuscular Volume 89.9 fL (80-100) Mean Corpuscular Hemoglobin 31.7 pg (25-34) Mean Corpuscular Hemoglobin Concent 35.2 g/dl (32-36) Platelet Count 306 K/uL (130-400) Mean Platelet Volume 9.5 fL (7.4-10.4) Neutrophils (%) (Auto) 40.4 % Lymphocytes (%) (Auto) 47.8 % Monocytes (%) (Auto) 9.7 % Eosinophils (%) (Auto) 1.8 % Basophils (%) (Auto) 0.3 % Neutrophils # (Auto) 1.59 K/uL (1.4-6.5) Lymphocytes # (Auto) 1.88 K/uL (1.2-3.4) Monocytes # (Auto) 0.38 K/uL (0.11-0.59) Eosinophils # (Auto) 0.07 K/uL (0-0.5) Basophils # (Auto) 0.01 K/uL (0-0.2) RDW Standard Deviation 41.7 fL (36.4-46.3) RDW Coefficient of Variation 12.8 % (11.5-14.5) Immature Granulocyte % (Auto) 0.0 % Immature Granulocyte # (Auto) 0.00 K/uL (0.00-0.02) Anion Gap 11.0 mmol/L (3-11) Est Creatinine Clear Calc Drug Dose 86.9 ml/min Estimated GFR () 83.5 Estimated GFR (Non- 72.1 BUN/Creatinine Ratio 13.5 (10-20) Calcium Level 8.7 mg/dl (8.5-10.1) Total Bilirubin 0.5 mg/dl (0.2-1) Direct Bilirubin mg/dl (0-0.2) Aspartate Amino Transf (AST/SGOT) 41 U/L (15-37) Alanine Aminotransferase (ALT/SGPT) 74 U/L (12-78) Alkaline Phosphatase 53 U/L (45-117) Total Protein 7.1 gm/dl (6.4-8.2) Albumin 3.8 gm/dl (3.4-5.0) Lipase 98 U/L (73-393) Chemistry Specimen Hemolysis Laboratory results per my review. Medications Administered Medications (Trade) Dose Ordered Sig/Karen Route Start Time Stop Time Status Last Admin Dose Admin Sodium Chloride (Nss 1000ml) 1,000 ml @ 999 mls/hr Q1H1M STAT IV 07/21/16 14:31 07/21/16 15:31 DC 07/21/16 14:31 999 MLS/HR Ondansetron HCl (Zofran Inj) 4 mg NOW STAT IV 07/21/16 14:31 07/21/16 14:32 DC 07/21/16 14:31 4 MG ED Course ED COURSE: Vital signs were reviewed and showed normal. The patients medical record was reviewed The above diagnostic studies were performed and reviewed. ED treatments and interventions as stated above. 1420: The patient was evaluated in room B09. A complete history and physical examination was performed. 1431: Zofran Inj 4 mg IV, Sodium Chloride 1000 ml @ 999 mls/hr IV 1615: I reevaluated the patient who is resting comfortably. 1708: I discussed the patient's case with Dr. Gray, general surgeon from [facility]. Upon reevaluation, the patient is resting comfortably.I discussed my findings with the patient and he understands and agrees with the treatment plan. Based on the patients age, coexisting illnesses, exam and lab findings the decision to treat as an outpatient was made. The patient remained stable while under my care. The patient appeared well at the time of discharge. Medical Decision Differential diagnosis: Etiologies such as appendicitis, diverticulitis, PUD, biliary pathology, UTI, pancreatitis, obstruction, mesenteric ischemia, aortic pathology, infections, inflammatory bowel disease, renal colic, as well as others were entertained. Patient is a 46 her old male with a competent past medical history for recent diverticulitis as diagnosed on July 13 and treated nonoperatively with a small microperforation of 6 mm area he was discharged on the placed on Cipro/Flagyl. He was instructed to follow up today with his PCP which he did. He had slight increase of the pain today consequently was referred in after PCP discussing this with the surgeon per the patient. Patient was evaluated by Dr. Naranjo in the hospital. Labs were obtained along with a CT with IV contrast which was remarkable for improving diverticulitis without abscess. This in combination with normal vitals no significant leukocytosis or fever I favored this gentleman would be better suited being treated as an outpatient. I did discuss this with Dr. Gray and he recommended an additional week of antibiotics. Stressed the importance of following up with his PCP within 24-48 hours and general surgery within the week. He was given additional prescription for Cipro and Flagyl. Discussed with Pt concerning signs and symptoms to watch out for. Pt was instructed to follow up with their PCP and discussed with the patient their option to return to the ED at anytime for persistent or worsening symptoms. The appropriate anticipatory guidance and out- patient management, including indications for return to the emergency department , were explained at length to the patient and understood. Consults Time Called: 1700 Consulting Physician: Dr. Gray, general surgeon from [facility] Returned Call: 1708 I discussed the patient's case with Dr. Gray, general surgeon from [facility]. Impression Primary Impression: Diverticulitis Scribe Attestation The scribe's documentation has been prepared under my direction and personally reviewed by me in its entirety. I confirm that the note above accurately reflects all work, treatment, procedures, and medical decision making performed by me. Departure Information Dispostion Home / Self-Care Prescriptions Ciprofloxacin Hcl (CIPRO) 500 Mg Tab 500 MG PO BID, #14 TAB Prov: Simone Armendariz, DO 07/21/16 Metronidazole (Flagyl) 250 Mg Tab 500 MG PO TID for 7 Days, #42 TAB Prov: Simone Armendariz, DO 07/21/16 Referrals Patel Villarreal M.D. (PCP) Andrew Naranjo M.D. Forms Call Back Authorization, HOME CARE DOCUMENTATION FORM, IMPORTANT VISIT INFORMATION Patient Instructions ED Diverticulitis, [facility] Additional Instructions Please follow up with your primary care doctor with in the next 24 hours. Any worsening of your symptoms, please return to the ED immediately. This includes any fevers greater than 100.4, blood in her stool, worsening pain, or any other concerning signs or symptoms from your standpoint. Please continue your antibiotics for additional 7 days as prescribed. He should follow-up with her primary care doctor as stated above and your surgeon within the week. Problem Qualifiers Primary Impression: Diverticulitis Diverticulitis site: large intestine Diverticulitis bleeding: without bleeding Diverticulitis complication: without perforation or abscess Qualified Codes: K57.32 - Diverticulitis of large intestine without perforation or abscess without bleeding
[2016-07-21] MEDS ORDERED: OPTIRAY 320 IV PRN (14:45)
[2016-07-21 15:10] LABS: BASO % 0.3 %; BASO ABS # 0.01 K/uL (0-0.2); COMPLETE YES; EOS % 1.8 %; HEMATOCRIT 42.9 % (42-52); LYMPH % 47.8 %; LYMPH ABS # 1.88 K/uL (1.2-3.4); MEAN CELL VOLUME 89.9 fL (80-100); MEAN CORPUSCULAR HEMOGLOBIN 31.7 pg (25-34); MEAN CORPUSCULAR HGB CONC 35.2 g/dl (32-36); MEAN PLATELET VOLUME 9.5 fL (7.4-10.4); MONO % 9.7 %; NEUT % 40.4 %; PLATELET COUNT 306 K/uL (130-400); RED BLOOD COUNT 4.77 M/uL (4.7-6.1); WHITE BLOOD COUNT 3.93 K/uL (4.8-10.8)
[2016-07-21 15:12] LABS: URINE APPEARANCE CLEAR (CLEAR); URINE BILIRUBIN NEG (NEG); URINE COLOR YELLOW; URINE EPITHELIAL CELL AUTO 0-5 /lpf (0-5); URINE NITRITE NEG (NEG); URINE PH 6.5 (4.5-7.5); URINE SPECIFIC GRAVITY 1.013 (1.000-1.030); UROBILINOGEN NEG (NEG); ZZUR CULT IF INDIC CLEAN CATCH NO
[2016-07-21 15:14] LABS: MANUAL MICROSCOPIC REQUIRED? NO; REVIEW REQ? NO
[2016-07-21 15:45] LABS: ALKALINE PHOSPHATASE 53 U/L (45-117); ALT/SGPT 74 U/L (12-78); AST/SGOT 41 U/L (15-37); BLOOD UREA NITROGEN 16 mg/dl (7-18); BUN/CREATININE RATIO 13.5 (10-20); CALCIUM 8.7 mg/dl (8.5-10.1); CARBON DIOXIDE 24 mmol/L (21-32); CHLORIDE 106 mmol/L (98-107); GLUCOSE 94 mg/dl (70-99); SODIUM 141 mmol/L (136-145)
--- NOTE | 2016-07-21 16:54 | DIAGNOSTIC IMAGING REPORT ---
ABDOMEN AND PELVIS CT WITH IV CONTRAST CT DOSE: 990.09 mGycm HISTORY: Pain LLQ abd pain w/ diver tic and previous abscess on 07/13 TECHNIQUE: Multiaxial CT images of the abdomen and pelvis were performed following the use of intravenous contrast. COMPARISON STUDY: 07/13/2016 FINDINGS: Lung bases are clear. Several small hepatic cysts unchanged in the prior study. Spleen is uniform. Pancreas shows moderate fatty replacement. Kidneys enhance uniformly. Acute proximal to mid sigmoid diverticulitis. Compared to the prior study was improved. No significant abscess or collection at the current time is present. Moderate residual pericolonic infiltrative changes present. No free fluid within the pelvic cul-de-sac. Bladder is midline. IMPRESSION: 1. Improving proximal to mid sigmoid acute diverticulitis. 2. Moderate pericolonic infiltrative change with wall thickening of the sigmoid improved from the prior study. 3. No current evidence for abscess collection or phlegmon formation. 4. Instill note is made of a small fat-containing right inguinal hernia. This is non bowel containing and nonobstructing. It Is considered an incidental finding. Electronically signed by: Arnie Pantoja M.D. 07/21/2016 4:53 PM Dictated Date/Time: 07/21/2016 4:47 PM
[2016-07-21] MEDS ORDERED: METR1TAB4 PO (17:18)
[2016-07-21] MEDS ORDERED: CIPR-255 PO (17:19)
[2016-07-21 17:31] VITALS: BP 104/56; PULSE 63; O2SAT 97
== END 2016-07-21 17:34 | disposition home or self-care (01) ==
LOC: C.EDB 13:28
DX: K57.32 Diverticulitis of large intestine without perforation or abscess without bleeding (principal); Z83.3 Family history of diabetes mellitus; Z79.899 Other long term (current) drug therapy